=== PATIENT | female | born 1955 | race Hispanic/Latino ===

== ENCOUNTER 2016-09-01 09:18 | Inpatient (IN) | payer MEDICARE ==
[2016-09-01] MEDS ORDERED: MAGNESIUM SULFATE 2GM/50ML 2 GM/50 ML BAG IV ONE ×2 (09:27→10:11)
[2016-09-01] MEDS ORDERED: ATIVAN ONE (09:38)
[2016-09-01 09:52] LABS: Basophils % (Auto) 0.9 % (0.0-1.8); Eosinophils % (Auto) 1.1 % (0.0-4.3); Hematocrit 43.1 % (30.3-42.9); Hemoglobin 13.8 gm/dl (10.1-14.3); Mean Corpuscular HGB Conc 32 % (30-34); Mean Corpuscular Hemoglobin 32 pg (28-32); Mean Corpuscular Volume 99 fl (79-97); Platelet Count 244 K/mm3 (140-440); Red Blood Count 4.34 M/mm3 (3.65-5.03); Red Cell Distribution Width 14.6 % (13.2-15.2); White Blood Count 7.7 K/mm3 (4.5-11.0)
[2016-09-01 10:11] LABS: Anion Gap 24 mmol/L; BUN/Creatinine Ratio 22.85; Blood Urea Nitrogen 16 mg/dL (7-17); Calcium 8.6 mg/dL (8.4-10.2); Carbon Dioxide 19 mmol/L (22-30); Chloride 94.5 mmol/L (98-107); Glucose 140 mg/dL (65-100); Potassium 4.3 mmol/L (3.6-5.0); Sodium 133 mmol/L (137-145)
[2016-09-01] MEDS ORDERED: ATIVAN IV ONE (10:12)
[2016-09-01 10:13] LABS: Creatine Kinase MB 1.8 ng/mL (0.0-4.0)
[2016-09-01 10:14] LABS: Creatine Kinase 41 units/L (30-135)
[2016-09-01] MEDS ORDERED: ROCEPHIN/NS 1 GM/50 ML 1 GM/50 ML BAG IV ONE (10:30)
[2016-09-01 10:44] LABS: ISTAT Base Excess -4; ISTAT HCO3 22.9; ISTAT PCO2 49.4 (35-45); ISTAT PH 7.274 (7.35-7.45); ISTAT PO2 250 (80-105); ISTAT SO2 100; ISTAT TCO2 24
--- NOTE | 2016-09-01 10:49 | XRay Report ---
PORTABLE CHEST INDICATION: Difficulty breathing. COMPARISON: None similar at this institution. FINDINGS: Portable, frontal chest radiograph suggest borderline/mild cardiomegaly. Aortic atherosclerotic calcifications. Left AICD with dual-chamber leads. Lung markings somewhat prominent centrally and towards the lung bases. No large pleural effusions or overt CHF however. EKG leads. Demineralized bones with few degenerative changes. CONCLUSION: Slight cardiomegaly and congestion possible, as described. Please correlate clinically and with prior chest imaging, if available. Thank you for the opportunity to participate in this patient's care.
--- NOTE | 2016-09-01 11:17 | Emergency Department Report ---
HPI - General Chief Complaint: Dyspnea/Respdistress Time Seen by Provider: 09/01/16 10:15 - HPI HPI: Chief complaint: Shortness of breath and altered mental status HPI: Patient is 61-year-old female with a history of congestive heart failure, coronary artery disease, COPD who was staying at and a local hotel planning to go to [facility] today for an outpatient cardiac catheterization. Patient is always short of breath but it became worse through the night and patient had severe shortness of breath this morning. EMS called to the scene and patient would not tolerate BiPAP or a mask on her face. Patient is given IV Solu-Medrol and blow-by out the overall. Patient's daughter states there is been no fever that she has had a cough. No nausea vomiting or diarrhea. Mode of arrival: EMS Source: The patient's daughter Began: During the night Duration: One day Context: See above Quality: Unable to assess Severity: Unable to assess Improved with: When placed on BiPAP in the emergency department Worsened with: Unable to assess Associated signs and symptoms: Unable to assess ED Past Medical Hx - Past Medical History Previous Medical History?: Yes Hx Heart Attack/AMI: Yes Hx Congestive Heart Failure: Yes Hx COPD: Yes - Surgical History Hx Pacemaker: Yes - Social History Smoking Status: Current Some Day Smoker Substance Use Type: None ED Review of Systems ROS: Stated complaint: MARCY Other details as noted in HPI Comment: Unobtainable due to pts medical conditions Physical Exam - Physical Exam Vital Signs: Vital Signs 09/01/16 09/01/16 09/01/16 09:27 09:30 09:46 Pulse Rate 125 H 102 H Respiratory 34 H 17 20 Rate Blood Pressure Blood Pressure 159/90 [Right] O2 Sat by Pulse 72 L 80 L 100 Oximetry 09/01/16 09/01/16 09/01/16 10:00 10:13 10:26 Pulse Rate 94 H 90 Respiratory 21 34 H 21 Rate Blood Pressure 87/60 Blood Pressure [Right] O2 Sat by Pulse 100 99 Oximetry Physical Exam: GENERAL: The patient is an elderly female on BiPAP. Patient has been sedated. HEENT: Normocephalic. Atraumatic. Extraocular motions are intact. Patient has moist mucous membranes. Pulse upper teeth. NECK: Supple. No meningitic signs are noted. There is no adenopathy noted. CHEST/LUNGS: Diminished throughout with occasional expiratory wheezes. There is no respiratory distress noted. HEART/CARDIOVASCULAR: Regular. There is tachycardia. ABDOMEN: Abdomen is soft, nontender. Patient has normal bowel sounds. There is no abdominal distention. SKIN: There is no rash. There is 1+ bilateral pedal edema. There is no diaphoresis. NEURO: The patient is lethargic. MUSCULOSKELETAL: There is no deformity. There is no evidence of acute injury. ED Course Vital Signs 09/01/16 09/01/16 09/01/16 09:27 09:30 09:46 Pulse Rate 125 H 102 H Respiratory 34 H 17 20 Rate Blood Pressure Blood Pressure 159/90 [Right] O2 Sat by Pulse 72 L 80 L 100 Oximetry 09/01/16 09/01/16 09/01/16 10:00 10:13 10:26 Pulse Rate 94 H 90 Respiratory 21 34 H 21 Rate Blood Pressure 87/60 Blood Pressure [Right] O2 Sat by Pulse 100 99 Oximetry - Reevaluation(s) Reevaluation #1: 09/01/16 Patient was placed on BiPAP and given 2 g of IV magnesium sulfate. Chest x-ray suggested a possible left lower lobe infiltrate and patient was cultured and given 1 g of IV Rocephin. They should admitted to the hospitalist service and Dr. Leavitt he was consulted to see the patient while in the hospital. ED Medical Decision Making - Lab Data Result diagrams: 09/01/16 09:36 09/01/16 09:36 Laboratory Tests 09/01/16 09/01/16 09/01/16 09:36 09:39 10:23 POC ABG pH 7.274 L POC ABG pCO2 49.4 H POC ABG pO2 250 H POC ABG HCO3 22.9 POC ABG Total CO2 24 POC ABG O2 Sat 100 POC ABG Base Excess -4 FiO2 65 Lactic Acid Calcium 8.6 Troponin T < 0.010 < 0.010 NT-Pro-B Natriuret Pep 5716 H 09/01/16 11:32 POC ABG pH POC ABG pCO2 POC ABG pO2 POC ABG HCO3 POC ABG Total CO2 POC ABG O2 Sat POC ABG Base Excess FiO2 Lactic Acid 1.5 Calcium Troponin T NT-Pro-B Natriuret Pep - EKG Data -: EKG Interpreted by Ks EKG shows normal: sinus rhythm Rate: normal - EKG Data When compared to previous EKG there are: previous EKG unavailable Interpretation: other (atrial abnormality, poor initial anterior forces) - Radiology Data interpreted by me: Chest x-ray shows cardiomegaly and possible left lower lobe infiltrate. Critical care attestation.: If time is entered above; I have spent that time in minutes in the direct care of this critically ill patient, excluding procedure time. ED Disposition Clinical Impression: COPD exacerbation Respiratory failure Qualifiers: Chronicity: unspecified Respiratory failure complication: hypoxia and hypercapnia Qualified Code(s): J96.91 - Respiratory failure, unspecified with hypoxia; J96.92 - Respiratory failure, unspecified with hypercapnia CHF (congestive heart failure) Qualifiers: Congestive heart failure type: unspecified congestive heart failure type Congestive heart failure chronicity: acute on chronic Qualified Code(s): I50.9 - Heart failure, unspecified Disposition: OP ADMITTED IP TO THIS HOSP Is pt being admited?: Yes Does the pt Need Aspirin: Yes Condition: Serious Instructions: Chronic Obstructive Pulmonary Disease (ED) Referrals: PRIMARY CARE, [Primary Care Provider] - 3-5 Days Time of Disposition: 11:02 (admit to the hospitalist)
[2016-09-01] MEDS ORDERED: DULCOLAX PR PRN (11:19)
[2016-09-01] MEDS ORDERED: MILK OF MAGNESIA PO PRN (11:19)
[2016-09-01] MEDS ORDERED: D50W (25GM) IV PRN (11:19)
[2016-09-01] MEDS ORDERED: ALUM-MAG HYDROX-SIMETH 200-200-20MG/5ML PO PRN (11:19)
[2016-09-01] MEDS ORDERED: PROVENTIL IH PRN (11:19)
--- NOTE | 2016-09-01 12:17 | Admit Criteria Form ---
Admission Criteria Documentation: COPD Clinical Indications for Admission to Inpatient Care (Place 'X' for any and all applicable criteria): Admission is indicated for ANY ONE of the following (1)(2)(3): [ ]I. Acute exacerbation by high-risk comorbidity (e.g., pneumonia, dysrhythmia, heart failure, pleural effusion, pneumothorax) or severe underlying COPD (e.g., steroid dependent) [X]II. Inpatient admission required rather than observation care (see Chronic Obstructive Pulmonary Disease: Observation Care) because of ANY ONE of the following: [X]a) New or pre-existing signs or symptoms of COPD (eg, dyspnea or Tachypnea at rest or with minimal activity) that persist despite outpatient and observation care treatment [X]b) New-onset hypoxemia (room air SaO2 less than 90%, PO2 less than 60 mm Hg (8.0 kPa)) that persists despite outpatient and observation care treatment [ ]c) Worsening of pre-existing hypoxemia (eg, new or increased requirement for supplemental oxygen to maintain oxygenation at baseline level) that persists despite outpatient and observation care treatment, with oxygen treatment needs performable only in acute inpatient setting [X]d) Hypercarbia (PCO2 greater than 40 mm Hg (5.3 kPa))-induced respiratory acidosis (pH less than 7.35) that persists despite outpatient and observation care treatment [X]e) Supplemental oxygen or respiratory treatments for over 24 hours that are performable only in acute inpatient setting [ ]f) Chest tube placement with active evacuation (e.g., suction, drainage) (5) [ ]g) Other condition, treatment or monitoring requiring inpatient admission [ ]III. Planned invasive surgical or diagnostic procedures requiring acute- care hospitalization [X]IV. Acute respiratory failure (e.g., uncompensated hypercarbia, severe hypoxemia) [ ]V. Severe comorbid condition (e.g., severe steroid myopathy, acute vertebral fracture) that has acutely worsened pulmonary function [ ]. Confusion state, lethargy, obtundation, stupor or coma Extended stay beyond goal length of stay may be needed for (31)(32): [ ]a ) Respiratory Failure. [ ]b) Severe or persisting hypoxemia or hypercarbia [ ]c) Severe or persistent dyspnea [ ]d) Comorbidities (e.g. chronic heart failure, atrial fibrillation with rapid response, pneumonia) [ ]e) Malnutrition The original [facility] content created by [facility] has been revised. The portions of the content which have been revised are identified through the use of italic text or in bold, and [facility] has neither reviewed nor approved the modified material. All other unmodified content is copyright [facility]. Please see references footnoted in the original [facility] edition 2016 Admission Criteria Met: Yes
[2016-09-01] MEDS ORDERED: ASPIRIN PO ONE (12:19)
--- NOTE | 2016-09-01 12:36 | History and Physical Report ---
History of Present Illness Date of examination: 09/01/16 Date of admission: 09/01/16 11:20 Chief complaint: SHORTNESS OF BREATH History of present illness: Patient is 61-year-old female with a history of congestive heart failure, coronary artery disease, COPD presented to the ER with complaints of shortness of breath. Per patient was staying in a local hotel for a planned outpatient cardiac catherization at [facility] when her symptoms started in the ER she was noted to be hypoxic in the 50s which was what the EMS said. She was started on a BiPAP. The hospital. The patient denied any fever or cough. Denied nausea vomiting or diarrhea. She did have some swelling of her bilateral lower extremities. Difficult to obtain more information due to BiPAP. ROS: Constitutional: No fever, fatigue or weight loss. Skin: No rash. Eyes: No recent vision problems or eye pain. ENT: No congestion, ear pain, or sore throat. Endocrine: No thyroid problems. Cardiovascular: No chest pain. Respiratory: Short of breath, wheezing,. Gastrointestinal: No abdominal pain, nausea, vomiting, or diarrhea. Genitourinary: No dysuria. Musculoskeletal: No joint swelling. Neurologic: No seizures. Hematologic: No unusual bruising or bleeding. Psychiatric: Anxious All other systems reviewed and otherwise negative. Past History Past Medical History: CAD, COPD, hypertension Past Surgical History: Other (pacemaker) Social history: lives with family, smoking, full code Family history: CAD, diabetes Medications and Allergies Allergies Allergy/AdvReac Type Severity Reaction Status Date / Time levofloxacin [From Levaquin] Allergy Unknown Verified 09/01/16 09:28 prochlorperazine Allergy Unknown Verified 09/01/16 09:28 [From Compazine] prochlorperazine edisylate Allergy Unknown Verified 09/01/16 09:28 [From Compazine] prochlorperazine maleate Allergy Unknown Verified 09/01/16 09:28 [From Compazine] Active Meds: Active Medications Al Hydrox/Mg Hydrox/Simethicone (Alum-Mag Hydrox-Simeth [id number]/5ml) 30 ml PO Q4H PRN PRN Reason: Indigestion Albuterol (Proventil) 2.5 mg IH Q3HRT PRN PRN Reason: Shortness Of Breath Albuterol/Ipratropium (Duoneb 0.5 Mg-3 Mg/3 Ml Soln) 1 ampul IH Q6HRT LUIZ Bisacodyl (Dulcolax) 10 mg VA QDAY PRN PRN Reason: constipation unrelieved by MOM Budesonide (Pulmicort) 0.5 mg IH Q12HRT LUIZ Dextrose (D50w (25gm)) 50 ml IV PRN PRN PRN Reason: Hypoglycemia Furosemide (Lasix) 20 mg IV ONCE ONE Stop: 09/02/16 12:34 Heparin Sodium (Porcine) (Heparin) 5,000 unit SUB-Q Q12HR LUIZ Insulin Human Regular (Novolin R) 0 units SUB-Q ACHS LUIZ PRN Reason: Protocol Magnesium Hydroxide (Milk Of Magnesia) 30 ml PO Q4H PRN PRN Reason: Constipation Exam - Physical Exam Narrative exam: VITAL SIGNS: Reviewed. GENERAL: The patient appeared well nourished and normally developed. Vital signs as documented. HEAD: No signs of head trauma. EYES: Pupils are equal. Extraocular motions intact. EARS: Hearing grossly intact. MOUTH: Oropharynx is normal. NECK: No adenopathy, no JVD. CHEST: Chest with wheezing bilaterally. Tachypneic CARDIAC: Regular rate and rhythm. S1 and S2, without murmurs, gallops, or rubs. VASCULAR: No Edema. Peripheral pulses normal and equal in all extremities. ABDOMEN: Soft, without detectable tenderness. No sign of distention. No rebound or guarding, and no masses palpated. Bowel Sounds normal. MUSCULOSKELETAL: Good range of motion of all major joints. Extremities without clubbing, cyanosis or edema. NEUROLOGIC EXAM: Alert and oriented x 3. No focal sensory or strength deficits. Speech normal. Follows commands. PSYCHIATRIC: Mood anxious appearing SKIN: No rash or lesions. - Constitutional Vitals: Temp Pulse Resp BP Pulse Ox 90 21 87/60 99 09/01/16 10:26 09/01/16 10:26 09/01/16 10:26 09/01/16 10:26 Results - Labs CBC & Chem 7: 09/01/16 09:36 09/01/16 09:36 Labs: Laboratory Last Values WBC 7.7 K/mm3 (4.5-11.0) 09/01/16 09:36 RBC 4.34 M/mm3 (3.65-5.03) 09/01/16 09:36 Hgb 13.8 gm/dl (10.1-14.3) 09/01/16 09:36 Hct 43.1 % (30.3-42.9) H 09/01/16 09:36 MCV 99 fl (79-97) H 09/01/16 09:36 MCH 32 pg (28-32) 09/01/16 09:36 MCHC 32 % (30-34) 09/01/16 09:36 RDW 14.6 % (13.2-15.2) 09/01/16 09:36 Plt Count 244 K/mm3 (140-440) 09/01/16 09:36 Lymph % (Auto) 35.5 % (13.4-35.0) H 09/01/16 09:36 [place] % (Auto) 11.3 % (0.0-7.3) H 09/01/16 09:36 Eos % (Auto) 1.1 % (0.0-4.3) 09/01/16 09:36 Baso % (Auto) 0.9 % (0.0-1.8) 09/01/16 09:36 Lymph # 2.7 K/mm3 (1.2-5.4) 09/01/16 09:36 [place] # 0.9 K/mm3 (0.0-0.8) H 09/01/16 09:36 Eos # 0.1 K/mm3 (0.0-0.4) 09/01/16 09:36 Baso # 0.1 K/mm3 (0.0-0.1) 09/01/16 09:36 Seg Neutrophils % 51.2 % (40.0-70.0) 09/01/16 09:36 Seg Neutrophils # 3.9 K/mm3 (1.8-7.7) 09/01/16 09:36 POC ABG pH 7.274 (7.35-7.45) L 09/01/16 10:23 POC ABG pCO2 49.4 (35-45) H 09/01/16 10:23 POC ABG pO2 250 (80-105) H 09/01/16 10:23 POC ABG HCO3 22.9 09/01/16 10:23 POC ABG Total CO2 24 09/01/16 10:23 POC ABG O2 Sat 100 09/01/16 10:23 POC ABG Base Excess -4 09/01/16 10:23 FiO2 65 % 09/01/16 10:23 Sodium 133 mmol/L (137-145) L 09/01/16 09:36 Potassium 4.3 mmol/L (3.6-5.0) 09/01/16 09:36 Chloride 94.5 mmol/L (98-107) L 09/01/16 09:36 Carbon Dioxide 19 mmol/L (22-30) L 09/01/16 09:36 Anion Gap 24 mmol/L 09/01/16 09:36 BUN 16 mg/dL (7-17) 09/01/16 09:36 Creatinine 0.7 mg/dL (0.7-1.2) 09/01/16 09:36 Estimated GFR > 60 ml/min 09/01/16 09:36 BUN/Creatinine Ratio 22.85 % 09/01/16 09:36 Glucose 140 mg/dL (65-100) H 09/01/16 09:36 Lactic Acid 1.5 mmol/L (0.7-2.0) 09/01/16 11:32 Calcium 8.6 mg/dL (8.4-10.2) 09/01/16 09:36 Total Creatine Kinase 41 units/L (30-135) 09/01/16 09:39 CK-MB (CK-2) 1.8 ng/mL (0.0-4.0) 09/01/16 09:39 CK-MB (CK-2) Rel Index 4.3 (0-4) H 09/01/16 09:39 Troponin T < 0.010 ng/mL (0.00-0.029) 09/01/16 09:39 NT-Pro-B Natriuret Pep 5716 pg/mL (0-900) H 09/01/16 09:36 - Imaging and Cardiology EKG: image reviewed (sinus tachycardia) Chest x-ray: image reviewed (mild congestion bilaterally) Assessment and Plan Assessment and plan: Patient is 61-year-old female with a history of congestive heart failure, coronary artery disease, COPD presented to the ER with complaints of shortness of breath. Per patient was staying in a local hotel for a planned outpatient cardiac catherization at [facility] when her symptoms started in the ER she was noted to be hypoxic in the 50s saturation which was what the EMS said. She was started on a BiPAP. The hospital. The patient denied any fever or cough. Denied nausea vomiting or diarrhea. She did have some swelling of her bilateral lower extremities. Difficult to obtain much information due to BiPAP * Acute on chronic hypoxic respiratory failure * COPD with exacerbation * Acute on chronic congestive heart failure * Metabolic acidosis Plan * We'll admit patient to the intensive care unit * Continue BiPAP * Cardiology consulted also discussed with them * [employer] consulted * Continue current therapy with antibiotics * We'll attempt to contact physician at [facility] for possible transfer per family request. When patient stabilized * DVT GI prophylaxis * I have discussed the case with the patient and family at bedside. * The high probability of a clinically significant, sudden or life threatening deterioration of the [pulmonary, cardiac] system(s) required my full and direct attention, intervention and personal management. The aggregate critical care time was [45] minutes. This time is in addition to time spent performing reported procedures but includes the following: [x] Data Review and interpretation [x] Patient assessment and monitoring of vital signs [x] Documentation [x] Medication orders and management Advance Directives: Yes Plan of care discussed with patient/family: Yes
--- NOTE | 2016-09-01 12:39 | Discharge Summary ---
Providers - Providers Date of Admission: 09/01/16 11:20 Date of discharge: 09/01/16 Attending physician: CURT REYNOSO MD Primary care physician: NAVAL [employer]CREWMAN Hospitalization Reason for admission: shortness of breath Condition: Stable Hospital course: Patient is 61-year-old female with a history of congestive heart failure, coronary artery disease, COPD presented to the ER with complaints of shortness of breath. Per patient was staying in a local hotel for a planned outpatient cardiac catherization at [facility] when her symptoms started in the ER she was noted to be hypoxic in the 50s saturation which was what the EMS said. She was started on a BiPAP. The hospital. The patient denied any fever or cough. Denied nausea vomiting or diarrhea. She did have some swelling of her bilateral lower extremities. We did discuss with Dr. Allan at [facility] and he accepted the patient for transfer to their facility. Again this resolved secondary to family's request and also patient has a planned procedure. The family did understand that we can provide all services here. In the meantime patient stabilized in the ER was able to come off the BiPAP was conversant freely with no difficulty. Was placed on 2 L nasal cannula for comfort. Obesity stable at this point for transfer and I did discuss with all consultants and cancelled the consults as patient hadn't been available immediately at the accepting facility. Discharge diagnosis * Acute on chronic hypoxic respiratory failure * COPD with exacerbation * Acute on chronic congestive heart failure * Metabolic acidosis Disposition: DC/TX ANOTHER TYPE HEALTHCARE Time spent for discharge: 35 mins Core Measure Documentation - Palliative Care Palliative Care/ Comfort Measures: Not Applicable - Core Measures Any of the following diagnoses?: heart failure - VTE Discharge Requirements Deep Vein Thrombosis/Pulmonary Embolism Present on Admission: No - Heart Failure Discharge Requirements DEON/ARB for LVSD if EF <40%: Not Applicable Beta rona at discharge: No Reason for no beta rona on DC: COPD Heart failure comment: Patient was transfered from the ER. Was just taken off BIPAP. Exam - Physical Exam Narrative exam: VITAL SIGNS: Reviewed. GENERAL: The patient appeared well nourished and normally developed. Vital signs as documented. HEAD: No signs of head trauma. EYES: Pupils are equal. Extraocular motions intact. EARS: Hearing grossly intact. MOUTH: Oropharynx is normal. NECK: No adenopathy, no JVD. CHEST: Chest with CLEAR WITH mild babisillar wheezing CARDIAC: Regular rate and rhythm. S1 and S2, without murmurs, gallops, or rubs. VASCULAR: No Edema. Peripheral pulses normal and equal in all extremities. ABDOMEN: Soft, without detectable tenderness. No sign of distention. No rebound or guarding, and no masses palpated. Bowel Sounds normal. MUSCULOSKELETAL: Good range of motion of all major joints. Extremities without clubbing, cyanosis or edema. NEUROLOGIC EXAM: Alert and oriented x 3. No focal sensory or strength deficits. Speech normal. Follows commands. PSYCHIATRIC: Mood normal appearing SKIN: No rash or lesions. - Constitutional Vitals: Temp Pulse Resp BP Pulse Ox 90 21 87/60 99 09/01/16 10:26 09/01/16 10:26 09/01/16 10:26 09/01/16 10:26 Plan Activity: advance as tolerated, fall precautions Diet: low salt Special Instructions: record daily BP diary Follow up with: PRIMARY CAREMD [Primary Care Provider] - 3-5 Days
[2016-09-01] MEDS ORDERED: ASPIRIN ONE (12:48)
[2016-09-01] MEDS ORDERED: DUONEB 0.5 MG-3 MG/3 ML SOLN IH SCH (14:00)
[2016-09-01 14:25] VITALS: BP 107/68
[2016-09-01] MEDS ORDERED: PULMICORT IH SCH (20:00)
[2016-09-01] MEDS ORDERED: HEPARIN SUB-Q SCH (22:00)
[2016-09-02] MEDS ORDERED: LASIX IV ONE (12:33)
== END 2016-09-02 07:39 | disposition short-term general hospital (02) | DRG 291 ==
LOC: ED 09:18 → CC1 11:20
PROVIDERS: ADMIT Internal Medicine; ATTEND Internal Medicine
PROC: 5A09357 Assistance with Respiratory Ventilation, Less than 24 Consecutive Hours, Continuous Positive Airway Pressure (ICD-10-PCS; principal; 2016-09-01)
PROC: 4A033R1 Measurement of Arterial Saturation, Peripheral, Percutaneous Approach (ICD-10-PCS; 2016-09-01)
DX: I11.0 Hypertensive heart disease with heart failure (principal); J96.21 Acute and chronic respiratory failure with hypoxia; J44.1 Chronic obstructive pulmonary disease with (acute) exacerbation; E87.2 Acidosis; I50.9 Heart failure, unspecified; I25.10 Atherosclerotic heart disease of native coronary artery without angina pectoris; F17.200 Nicotine dependence, unspecified, uncomplicated; Z88.8 Allergy status to other drugs, medicaments and biological substances; Z82.49 Family history of ischemic heart disease and other diseases of the circulatory system; Z83.3 Family history of diabetes mellitus
CPT/HCPCS: 36415; 71010; 80048; 82140; 82550; 82553; 82803; 83880; 84484; 85025; 87040; 93005; 93010; J0696; J2060; J3475